=== PATIENT | male | born 2000 | race Caucasian/White ===

== ENCOUNTER 2023-04-09 12:19 | Emergency (ER) | payer OTHER ==
[~2023-04-09] VITALS: Ht 175.3 cm; Wt 73.0 kg
[2023-04-09 12:36] VITALS: BP 128/64; TEMP 98.6; O2SAT 100
[2023-04-09] MEDS ORDERED: POLY10DR LEFTEYE ×2 (12:52→13:34)
== END 2023-04-09 13:40 | disposition home or self-care (01) ==
LOC: ER 12:25
DX: S05.02XA Injury of conjunctiva and corneal abrasion without foreign body, left eye, initial encounter (principal); Z79.899 Other long term (current) drug therapy; Z60.2 Problems related to living alone; W22.8XXA Striking against or struck by other objects, initial encounter; Y93.89 Activity, other specified; Y92.89 Other specified places as the place of occurrence of the external cause; Y99.8 Other external cause status